=== PATIENT | female | born 1990 ===

== ENCOUNTER → 2019-07-04 | Outpatient (CLI) | payer OTHER ==
[~2019-07-04] MED LIST: ACEBUTCAFT PO; AMOX250 PO; Adipex-P37.5 MG PO; Augmentin Xr 11 EACH PO; CYCL10 PO; FIORICET 50-321 EACH PO; Flonase 0.05% N16 GM; HYDACE5 PO; IBUP600 PO; LISHYD1012 PO; MEDR150I IM; METO25ER PO; METPRE4DP PO; ONDA4 PO; ONDA4ODT MM; Percocet 5-3251 EACH PO; Sprintec1 EACH PO; Zantac150 MG PO
[2019-07-04 13:51] LABS: Protein, Urine Quantitative <5.0 mg/dL (0.0-11.9)
== END | disposition home or self-care (01) ==
LOC: LAB 07:55 → LAB SHORT 07:55
PROVIDERS: Advanced Practice Midwife
DX: I10 Essential (primary) hypertension (principal)
CPT/HCPCS: 81050; 84156

== ENCOUNTER → 2019-12-05 | Outpatient (CLI) | payer OTHER | END | disposition home or self-care (01) | DX: Z34.03 Encounter for supervision of normal first pregnancy, third trimester (principal) ==

== ENCOUNTER 2020-01-01 16:00 | Inpatient (IN) | payer OTHER ==
[~2020-01-01] VITALS: Ht 170.2 cm; Wt 147.8 kg
[2020-01-01] MEDS ORDERED: PRENATAL TABLE1 EAC2 PO (17:11)
[2020-01-01] MEDS ORDERED: PEPCID40 MG PO (17:11)
[2020-01-01 17:38] LABS: BASOPHILS ABSOLUTE AUTO 0.03 K/mm3 (0.00-0.23); BASOPHILS PERCENT AUTO 0 % (0-2); EOSINOPHILS ABSOLUTE AUTO 0.08 K/mm3 (0.00-0.68); EOSINOPHILS PERCENT AUTO 1 % (0-6); Hematocrit 33.1 % (33.0-51.0); Hemoglobin 11.1 g/dL (11.5-16.0); IMMATURE GRAN ABSOLUTE AUTO 0.06 K/mm3 (0.00-0.10); IMMATURE GRAN PERCENT AUTO 1 % (0-1); LYMPHOCYTES ABSOLUTE AUTO 1.66 K/mm3 (0.84-5.20); LYMPHOCYTES PERCENT AUTO 15 % (21-46); MONOCYTES ABSOLUTE AUTO 0.85 K/mm3 (0.16-1.47); MONOCYTES PERCENT AUTO 8 % (4-13); Mean Corpuscular HGB Conc 33.5 g/dL (31.5-36.5); Mean Corpuscular Volume 86 fL (80-100); Mean Platelet Volume 10.6 fL (9.1-12.4); NEUTROPHILS ABSOLUTE AUTO 8.59 K/mm3 (1.96-9.15); NEUTROPHILS PERCENT AUTO 76 % (41-73); Platelet Count 288 K/mm3 (150-400); RDW Coefficient Variation 14.4 % (11.7-14.2); RDW Standard Deviation 44.6 fL (35.1-46.3); Red Blood Cell Count 3.83 M/mm3 (3.80-5.20); White Blood Cell Count 11.27 K/mm3 (4.00-11.30)
--- NOTE | 2020-01-03 01:12 | NUR ---
01/03/20 0112 Belkis Messer PT ENTERED OR WITH MONAE CATHETER
[2020-01-03 03:12] LABS: PCO2 Cord - Arterial 51.6 mmHg (40-50); PCO2 Cord - Venous 43.2 mmHg (40-50); PO2 Cord - Arterial < 13 mmHg (16-20); PO2 Cord - Venous 14.6 mmHg (28-32); pH Cord - Arterial 7.16 (7.28-7.35); pH Umbilical Cord - Venous 7.29 (7.26-7.35)
--- NOTE | 2020-01-03 03:19 | NUR ---
-RT responded to C/S delivery. -See RN note for time of . -PT born with weak cry, central cyanosis, poor tone, but adequate HR. -PT dried and stimulated with some crying. -CPAP initiated first due to increased WOB and retractions. -MRSOPA followed. -Oral sx for large amount of thick clear/pink tinged. -PPV and CPAP alternated as PT had increased WOB (CPAP), would plug up with secretions which required PPV to recover until secretions were removed. -FiO2 increased up to 50% slowly as SpO2 did not recover. -PT transported to nursery on CPAP 5 FiO2 50%.
--- NOTE | 2020-01-03 08:45 | NUR ---
PT PUMPING, PLAN TO PUMP Q2 HRS TODAY
--- NOTE | 2020-01-03 10:32 | NUR ---
RN ROUNDED TO HELP SET UP PUMP FOR PT. NB IN SCN AND NOT AVAILABLE TO BREASTFEED AT THIS TIME. INSTRUCT/DEMO PUMP USE AND HAND EXPRESSION. RN INSTRUCTED PT TO PUMP ON HIGHEST COMFORTABLE SETTING EVERY 2-3 HOURS FOR 15-10 MINUTES. PT VERBALIZED UNDERSTANDING AND DENIES ANY FURTHER QUESTIONS OR CONCERNS.
--- NOTE | 2020-01-03 12:10 | NUR ---
PT UP TO WHEELCHAIR TO SEE IN NRSY.
[2020-01-03 13:00] LABS: Hematocrit 30.2 % (33.0-51.0); Hemoglobin 9.9 g/dL (11.5-16.0); Mean Corpuscular HGB 28.6 pg (26.0-34.0); Mean Corpuscular HGB Conc 32.8 g/dL (31.5-36.5); Mean Corpuscular Volume 87 fL (80-100); Mean Platelet Volume 10.5 fL (9.1-12.4); Platelet Count 235 K/mm3 (150-400); RDW Coefficient Variation 14.6 % (11.7-14.2); RDW Standard Deviation 45.9 fL (35.1-46.3); Red Blood Cell Count 3.46 M/mm3 (3.80-5.20); White Blood Cell Count 13.94 K/mm3 (4.00-11.30)
--- NOTE | 2020-01-04 00:07 | NUR ---
2300-SBAR FROM Brad ALVAREZ RN, ASSUMED CARE OF PT AT THAT TIME. CONCUR WITH SHIFT ASSESSMENT. IN TO SEE PT AND ASSISTED WITH AND PROVIDED EDUCATION TO BOTH PARENTS ON NORMAL CARE R/T FEEDING AND TEMPERATURE. BOTH VERBALIZED UNDERSTANDING. WILL CONTINUE TO MONITOR.
--- NOTE | 2020-01-05 08:47 | NUR ---
0815: PT DESIRES TO SLEEP. REQUESTS NB TO NURSERY. DISCUSSED B/PS THIS MORNING AND ORDER FOR LABETALOL. PT DESIRES TO TAKE AM DOSE OF LABETALOL PER ORDER. PT REQUESTS TO NOT BE WOKEN. SHE WILL NOTIFY RN WHEN SHE IS AWAKE.
--- NOTE | 2020-01-05 10:29 | NUR ---
PT AWAKEN FOR SCHEDULED MEDS. NO COMPLAINTS. R/T SLEEP.
--- NOTE | 2020-01-05 11:29 | NUR ---
B/P TAKEN WITH ARM AND THEN WRIST CUFF. PT STATES SHE IS GETTING FRUSTRATED WITH B/P DIFFERENCES. REASSURED THAT SHE HAS EVERY REASON TO FEEL THAT WAY. WILL R/T TO REPEAT B/P IN 30-60 MIN. PT DENIES A H/A.
[2020-01-05] MEDS ORDERED: LABE100 PO (13:38)
[2020-01-05] MEDS ORDERED: Percocet 5-3251 EACH PO (13:38)
[2020-01-05] MEDS ORDERED: DOCU100 PO (13:39)
[2020-01-05] MEDS ORDERED: IBUP800 PO (13:39)
--- NOTE | 2020-01-05 13:50 | NUR ---
LC HERE ASSISTING WITH BF
--- NOTE | 2020-01-05 13:59 | NUR ---
D/C INSTRUCTIONS AND NEW MEDS DISCUSSED AND SIGNED. PT ASKS APPROPRIATE QUESTIONS. GOING OVER FINAL INSTRUCTIONS WITH JEVON MELTON RN. PT DENIES H/A OR VISUAL DISTURBANCES. NO OTHER CONCERNS AT THIS TIME. PLAN D/C WHEN DONE FEEDING NB
--- NOTE | 2020-01-05 14:28 | NUR ---
RN ROUNDED TO HELP W/ . PT HAS NB LATCHED AND FEEDING WELL. INSTRUCT/DEMO WIDENING LATCH, CORRECT POSITIONING AND NIPPLE SHAPE AFTER FEEDS. INSTRUCT/REVIEWED BOOKLET AND BROCHURE ON WHAT TO EXPECT DURING THE FIRST WEEK W/ AND NB FEEDING PATTERN CHANGES. INSTRUCT/DEMO TUBE AND SYRINGE USE AT BREAST AND W/ FINGER FEEDING. PT AND SO AND VERBALIZED UNDERSTANDING AND DENY ANY FURTHER QUESTIONS OR CONCERNS.
--- NOTE | 2020-01-05 14:29 | NUR ---
D/C HOME WITH BABY
== END 2020-01-05 14:30 | disposition home or self-care (01) | DRG 788 ==
LOC: OBS 16:00 → BC 16:12
PROVIDERS: ADMIT Obstetrics & Gynecology
PROC: 3E0P7VZ Introduction of Hormone into Female Reproductive, Via Natural or Artificial Opening (ICD-10-PCS; 2020-01-01)
PROC: 3E033VJ Introduction of Other Hormone into Peripheral Vein, Percutaneous Approach (ICD-10-PCS; 2020-01-02)
PROC: 10907ZC Drainage of Amniotic Fluid, Therapeutic from Products of Conception, Via Natural or Artificial Opening (ICD-10-PCS; 2020-01-02)
PROC: 00HU33Z Insertion of Infusion Device into Spinal Canal, Percutaneous Approach (ICD-10-PCS; 2020-01-02)
PROC: 00HU33Z Insertion of Infusion Device into Spinal Canal, Percutaneous Approach (ICD-10-PCS; 2020-01-02)
PROC: 10D00Z1 Extraction of Products of Conception, Low, Open Approach (ICD-10-PCS; principal; 2020-01-03 12:45)
DX: O10.92 Unspecified pre-existing hypertension complicating childbirth (principal); O99.824 Streptococcus B carrier state complicating childbirth; O76 Abnormality in fetal heart rate and rhythm complicating labor and delivery; O61.0 Failed medical induction of labor; O99.214 Obesity complicating childbirth; E66.01 Morbid (severe) obesity due to excess calories; Z3A.39 39 weeks gestation of pregnancy; Z37.0 Single live birth; O75.0 Maternal distress during labor and delivery
CPT/HCPCS: 36415; 51702; 82803; 85025; 85027; 86850; 86900; 86901; A9270; J0290; J0690; J1885; J1940; J2001; J2405; J2590; J2704; J2765; J3010; J7120

== ENCOUNTER 2020-04-12 18:13 | Emergency (ER) | payer OTHER ==
[~2020-04-12] VITALS: Ht 170.2 cm; Wt 131.5 kg
[~2020-04-12 18:13] MED LIST changes: +DOCU100 PO; +IBUP800 PO; +LABE100 PO; +PEPCID40 MG PO; +PRENATAL TABLE1 EAC2 PO
[2020-04-12 19:47] LABS: BASOPHILS ABSOLUTE AUTO 0.03 K/mm3 (0.00-0.23); BASOPHILS PERCENT AUTO 0 % (0-2); EOSINOPHILS ABSOLUTE AUTO 0.14 K/mm3 (0.00-0.68); EOSINOPHILS PERCENT AUTO 1 % (0-6); Hematocrit 40.6 % (33.0-51.0); IMMATURE GRAN ABSOLUTE AUTO 0.03 K/mm3 (0.00-0.10); IMMATURE GRAN PERCENT AUTO 0 % (0-1); LYMPHOCYTES ABSOLUTE AUTO 2.06 K/mm3 (0.84-5.20); LYMPHOCYTES PERCENT AUTO 21 % (21-46); MONOCYTES ABSOLUTE AUTO 0.55 K/mm3 (0.16-1.47); MONOCYTES PERCENT AUTO 6 % (4-13); Mean Corpuscular HGB 28.5 pg (26.0-34.0); Mean Corpuscular Volume 89 fL (80-100); NEUTROPHILS ABSOLUTE AUTO 7.01 K/mm3 (1.96-9.15); NEUTROPHILS PERCENT AUTO 71 % (41-73); Platelet Count 331 K/mm3 (150-400); RDW Coefficient Variation 15.4 % (11.7-14.2); RDW Standard Deviation 50.6 fL (35.1-46.3); Red Blood Cell Count 4.56 M/mm3 (3.80-5.20); White Blood Cell Count 9.82 K/mm3 (4.00-11.30)
[2020-04-12 20:05] LABS: Alanine Aminotransfer (ALT/SGP 36 U/L (12-78); Albumin, Blood 3.8 g/dL (3.4-5.0); Albumin/Globulin Ratio 0.9 (0.8-1.8); Alk Phos 61 U/L (50-136); Anion Gap 5 mmol/L (6-16); Aspartate Aminotrans (AST/SGOT 25 U/L (12-37); Bilirubin, Total 0.3 mg/dL (0.1-1.0); Blood Urea Nitrogen 11 mg/dL (8-24); Bun/Creatinine Ratio 11.9 (12.0-20.0); CO2, Blood 24 mmol/L (21-32); Calcium, Blood 9.4 mg/dL (8.5-10.1); Chloride, Blood 108 mmol/L (98-108); Creatinine, Blood 0.92 mg/dL (0.40-1.00); Globulin, Blood 4.3 g/dL (2.2-4.0); Glomerular Filtration Rate >60 (60-); Glucose, Blood 83 mg/dL (70-99); Potassium, Blood 3.5 mmol/L (3.5-5.5); Sodium, Blood 137 mmol/L (136-145); Total Protein, Blood 8.1 g/dL (6.4-8.2)
[2020-04-12] MEDS ORDERED: METO25ER PO (23:06)
== END 2020-04-12 23:31 | disposition home or self-care (01) ==
LOC: ER 18:13
PROVIDERS: Physician Assistant
DX: I10 Essential (primary) hypertension (principal); K21.9 Gastro-esophageal reflux disease without esophagitis; E66.9 Obesity, unspecified; F17.210 Nicotine dependence, cigarettes, uncomplicated; Z68.42 Body mass index [BMI] 45.0-49.9, adult; Z88.1 Allergy status to other antibiotic agents; Z79.899 Other long term (current) drug therapy
CPT/HCPCS: 36415; 80053; 85025; 96374; 96375; 99283-25; J0780; J1200; J1885

== ENCOUNTER → 2021-11-18 | Outpatient (CLI) | payer OTHER ==
[2021-11-19 16:09] LABS: HPV 16 Negative (Negative); HPV 18 Negative (Negative); HPV OTHER HR TYPES Negative (Negative)
== END | disposition home or self-care (01) ==
LOC: LAB 11:25 → LAB SHORT 11:25
PROVIDERS: Obstetrics & Gynecology
DX: Z01.419 Encounter for gynecological examination (general) (routine) without abnormal findings (principal)
CPT/HCPCS: 87624; G0123

== ENCOUNTER → 2024-08-09 | Outpatient (CLI) | payer OTHER ==
[2024-08-15 17:50] LABS: HPV HIGH RISK BY TMA Not Detected; HPV SOURCE Cervical
== END ==
LOC: LAB 15:40 → LAB SHORT 15:40
PROVIDERS: Obstetrics & Gynecology
DX: Z01.419 Encounter for gynecological examination (general) (routine) without abnormal findings (principal)
CPT/HCPCS: 87624; G0123

== ENCOUNTER → 2025-02-15 | Outpatient (CLI) | payer OTHER ==
[2025-02-15 17:23] LABS: Source, Urine Voided
[2025-02-15 19:14] LABS: Creatinine, Urine Random 60.70 mg/dL (27.00-270.00)
[2025-02-15 19:32] LABS: Protein, Urine Random <5.0 mg/dL (0.0-11.9); Protein/Creat Ratio, Ur Random Unable to Calculate
[2025-02-15 19:50] LABS: Red Blood Cells, Urine 0-2 /hpf (0-2)
== END | disposition home or self-care (01) ==
LOC: LAB 17:19 → LAB SHORT 17:19
PROVIDERS: Obstetrics & Gynecology
DX: Z34.81 Encounter for supervision of other normal pregnancy, first trimester (principal)
CPT/HCPCS: 81015; 82570; 84156; 87077; 87086; 87186